=== PATIENT | male | born 1945 | race Caucasian/White ===

== ENCOUNTER 2018-04-20 08:07 | Day surgery (SDC) | payer MEDICARE, OTHER ==
[~2018-04-20 08:07] MED LIST: Lactated Ringers 1,000 ML IV SCH; Lidocaine 1%/Sod Bicarbonate in NS 8.4% 1 ML Syringe IDERM PRN; Sodium Chloride 0.9% 10 ML Syringe FLUSH PRN
[2018-04-20] MEDS ORDERED: Propofol 200 MG/20 ML SDV ONE (09:45)
[2018-04-20] MEDS ORDERED: fentaNYL 100 MCG/2 ML SDV ONE (09:46)
[2018-04-20] MEDS ORDERED: Lidocaine 1% 4 ML ONE (09:49)
--- NOTE | 2018-04-20 11:05 | PCM48HPAN ---
Post Anesthesia Note - EVALUATION WITHIN 48HRS OF ANESTHETIC Vital Signs in Normal Range: Yes Patient Participated in Evaluation: Yes Respiratory Function Stable: Yes Airway Patent: Yes Cardiovascular Function Stable: Yes Hydration Status Stable: Yes Pain Control Satisfactory: Yes Nausea and Vomiting Control Satisfactory: Yes Mental Status Recovered: Yes Pulse Rate: 50 SaO2: 96 Resp Rate: 16 Temperature: 36.9 C Blood Pressure: 124/65
--- NOTE | 2018-04-20 11:06 | PCM.OPNOTE ---
- General Post-Op/Procedure Note Date of Surgery/Procedure: 04/20/18 Operative Procedure(s): EGD with bx and esphageal dilitation to 45 F and colonosocopy to rt colon Pre Op Diagnosis: dysphagia and personal hx of colon cancer Post-Op Diagnosis: Same Anesthesia Technique: MAC Primary Surgeon: Carlo Marie EBL in mLs: 0 Complications: None Condition: Good
--- NOTE | 2018-04-20 11:14 | PCM.PREANE ---
Preanesthetic Assessment - Procedure Proposed Procedure: EGD/ Colonoscopy - Anesthesia/Transfusion/Family Hx Anesthesia History: Prior Anesthesia Without Reaction Family History of Anesthesia Reaction: No Transfusion History: No Prior Transfusion(s) Intubation History: Unknown - Review of Systems General: No Symptoms Pulmonary: No Symptoms Cardiovascular: Other (HTN, HLD) Gastrointestinal: Difficulty Swallowing, Other (Pt has hx of colon CA with chemotherapy ) Neurological: Numbness (LE neuropathy form chemo), Seizure (last 2013), Syncope (from a lodged food bolus ) Other: Reports: Thyroid Problems (hypothyroid) - Physical Assessment NPO Status Date: 04/19/18 NPO Status Time: 23:30 Pulse: 50 O2 Sat by Pulse Oximetry: 96 Respiratory Rate: 16 Blood Pressure: 124/65 Temperature: 36.9 C Vital Signs: Last Vital Signs Temp 36.9 C 04/20/18 11:05 Pulse 50 L 04/20/18 11:05 Resp 16 04/20/18 11:05 BP 124/65 04/20/18 11:05 Pulse Ox 96 04/20/18 11:05 Height: 1.78 m Weight: 81 kg ASA Class: 3 Mental Status: Alert & Oriented x3 Airway Class: Mallampati = 2 Dentition: Reports: Missing Tooth/Teeth (multiple missing molars ) Thyro-Mental Finger Breadths: 3 Mouth Opening Finger Breadths: 3 ROM/Head Extension: Full Lungs: Clear to Auscultation, Normal Respiratory Effort Cardiovascular: Regular Rate, Regular Rhythm - Allergies Allergies/Adverse Reactions: Allergies Allergy/AdvReac Type Severity Reaction Status Date / Time No Known Allergies Allergy Verified 04/19/18 13:04 - Blood Blood Available: No Product(s) Available: None - Anesthesia Plan Pre-Op Medication Ordered: None - Acknowledgements Anesthesia Type Planned: MAC Pt an Appropriate Candidate for the Planned Anesthesia: Yes Alternatives and Risks of Anesthesia Discussed w Pt/Guardian: Yes Pt/Guardian Understands and Agrees with Anesthesia Plan: Yes PreAnesthesia Questionnaire HEENT History: Reports: Impaired Vision Cardiovascular History: Reports: High Cholesterol, Hypertension Respiratory History: Reports: None Gastrointestinal History: Reports: Colon Polyp Genitourinary History: Reports: None [employer] History: Reports: None Musculoskeletal History: Reports: None 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, Peripheral, Seizure Psychiatric History: Reports: None Endocrine/Metabolic History: Reports: Hypothyroidism Hematologic History: Reports: None Immunologic History: Reports: Immunosuppression Oncologic (Cancer) History: Reports: Colon Dermatologic History: Reports: None - Past Surgical History Head Surgeries/Procedures: Reports: None HEENT Surgical History: Reports: Adenoidectomy, Cataract Surgery, Tonsillectomy Cardiovascular Surgical History: Reports: None Respiratory Surgical History: Reports: None GI Surgical History: Reports: Colon, Colonoscopy Female Surgical History: Reports: None Male Surgical History: Reports: None Endocrine Surgical History: Reports: None Neurological Surgical History: Reports: None Musculoskeletal Surgical History: Reports: None Oncologic Surgical History: Reports: Other (See Below) Other Oncologic Surgeries/Procedures: colon cancer treated with chemotherapy and radiation Dermatological Surgical History: Reports: None - SUBSTANCE USE Smoking Status *Q: Former Smoker Recreational Drug Use History: No - HOME MEDS Home Medications: Home Meds Cholecalciferol (Vitamin D3) [Vitamin D3] 5,000 unit PO DAILY 04/19/18 [History] Folic Acid 0.4 mg PO DAILY 04/19/18 [History] Levothyroxine [Synthroid] 100 mcg PO DAILY 04/19/18 [History] Metoprolol Tartrate 25 mg PO BID 04/19/18 [History] Multivitamin [Daily Multiple Vitamin] 1 tab PO DAILY 04/19/18 [History] Olmesartan/Hydrochlorothiazide [Benicar HCT 40-25 MG] 1 tab PO DAILY 04/19/18 [ History] Simvastatin [Zocor] 20 mg PO DAILY 04/19/18 [History] carBAMazepine [Tegretol] 400 mg PO TID 04/19/18 [History] levETIRAcetam [Keppra] 500 mg PO BID 04/19/18 [History] - CURRENT (IN HOUSE) MEDS Current Meds: Current Medications Lactated Ringer's (Ringers, Lactated) 1,000 mls @ 125 mls/hr IV ASDIRECTED NESTOR Stop: 04/20/18 23:00 Last Admin: 04/20/18 08:45 Dose: 125 mls/hr Lidocaine/Sodium Bicarbonate (Buffered Lidocaine 1% In Ns 8.4%) 0.25 ml IDERM ONETIME PRN PRN Reason: Prior to IV Start Stop: 04/20/18 18:00 Last Admin: 04/20/18 08:44 Dose: 0.25 ml Sodium Chloride (Saline Flush) 10 ml FLUSH ASDIRECTED PRN PRN Reason: Keep Vein Open Stop: 04/20/18 18:00 Discontinued Medications Fentanyl (Sublimaze) Confirm Administered Dose 100 mcg .ROUTE .STK-MED ONE Stop: 04/20/18 09:47 Lidocaine HCl (Xylocaine-Mpf 1%) Confirm Administered Dose 4 mls @ as directed .ROUTE .STK-MED ONE Stop: 04/20/18 09:50 Propofol (Diprivan 20 Ml) Confirm Administered Dose 200 mg .ROUTE .STK-MED ONE Stop: 04/20/18 09:46
--- NOTE | 2018-04-20 15:12 | OR ---
DATE OF OPERATION: 04/20/2018 SURGEON: Carlo Marie MD PREOPERATIVE DIAGNOSIS: Dysphagia. POSTOPERATIVE DIAGNOSIS: Dysphagia. OPERATION PERFORMED: Esophagogastroduodenoscopy with biopsy with balloon dilatation of distal esophagus to 45-Upper Sorbian. FINDINGS: Some flat mucosa in the stomach suggesting chronic gastritis. Biopsies were taken. Some erythema in the duodenal bulb and this area was biopsied. The GE junction appeared normal as did the second portion of the duodenum, rest of the stomach, and the balance of the esophagus. It was located at 40 cm. ANESTHESIA: Done under IV sedation. DESCRIPTION OF PROCEDURE: The patient was taken to the endoscopy room, placed in a supine position, connected to monitoring equipment, and given IV sedation. Bite block was inserted and video Olympus gastroscope was placed in the posterior oropharynx. Under direct vision, it was threaded past the cricopharyngeus, down the esophagus, into the stomach. The stomach was insufflated and the scope passed through the pylorus to the second portion of the duodenum. It was then slowly withdrawn showing normal second portion of the duodenum. Duodenal bulb showed some redness. This area was biopsied. Pyloric channel was normal. Antrum, body, and cardia of the stomach suggested some chronic gastritis and the antrum was biopsied. J-maneuver showed intact fundus, and hiatus was unremarkable and intact. The scope was withdrawn to the GE junction, which was at 40 cm and did not show acute disease. A balloon was then inserted through the channels of the scope and the distal esophagus dilated up to 45-Upper Sorbian. The scope was then slowly withdrawn showing no specific pathology. The patient tolerated the procedure, and IV sedation was continued for colonoscopy. ESTIMATED BLOOD LOSS: MMODAL /[id number]
--- NOTE | 2018-04-20 15:17 | OR ---
DATE OF OPERATION: 04/20/2018 SURGEON: Carlo Marie MD PREOPERATIVE DIAGNOSIS: History of colon cancer. POSTOPERATIVE DIAGNOSIS: History of colon cancer. OPERATION PERFORMED: Colonoscopy to the right colon where the right side-to- side ileocolonic anastomosis was noted. FINDINGS: Normal study. ANESTHESIA: Done under IV sedation. DESCRIPTION OF PROCEDURE: The patient was taken to the endoscopy room and having been given IV sedation for upper GI endoscopy, the IV sedation was continued for colonoscopy. He was placed in left lateral position. Perianal area was inspected and normal. Rectal exam showed good sphincter tone. A video Olympus colonoscope was then introduced into the rectum and threaded up to the right side of the colon, where a right hemicolectomy had been done for cancer with a [id number] staple anastomosis. This was functioning well and healed without problem. The scope was then slowly withdrawn showing normal remaining portion of the transverse colon, descending colon, sigmoid colon, and rectum. There was no evidence of recurrent cancer or other pathology in the colon. The patient tolerated the procedure, sent to recovery room in a stable condition, will be followed up in the clinic as needed. ESTIMATED BLOOD LOSS: MMODAL /[id number]
== END 2018-04-20 11:57 | disposition home or self-care (01) ==
LOC: JD.SDS 08:07
PROVIDERS: ATTEND Surgery
DX: Z12.11 Encounter for screening for malignant neoplasm of colon (principal); R13.10 Dysphagia, unspecified; K29.50 Unspecified chronic gastritis without bleeding; B96.81 Helicobacter pylori [H. pylori] as the cause of diseases classified elsewhere; K29.80 Duodenitis without bleeding; I10 Essential (primary) hypertension; E03.9 Hypothyroidism, unspecified; E78.2 Mixed hyperlipidemia; Z86.010 Personal history of colon polyps; Z85.038 Personal history of other malignant neoplasm of large intestine; Z87.891 Personal history of nicotine dependence; Z92.3 Personal history of irradiation; Z92.21 Personal history of antineoplastic chemotherapy; Z79.899 Other long term (current) drug therapy; Z79.890 Hormone replacement therapy; Z90.49 Acquired absence of other specified parts of digestive tract; Z98.0 Intestinal bypass and anastomosis status
CPT/HCPCS: 43239; 43249; 45378; J2001; J2704; J3010; J7120; 00813

== ENCOUNTER 2020-09-07 09:21 | Emergency (ER) | payer MEDICARE, OTHER ==
--- NOTE | 2020-09-07 09:34 | EDM.PDOC ---
ED HPI GENERAL MEDICAL PROBLEM - General Chief Complaint: Lower Extremity Injury/Pain Stated Complaint: HIGH BLOOD PRESSURE/ CANT WALK Time Seen by Provider: 09/07/20 09:28 - History of Present Illness INITIAL COMMENTS - FREE TEXT/NARRATIVE: 75-year-old male presents the emergency room with elevated blood pressure and increased difficulty walking. The patient and his seem to correlate this worsening lower extremity weakn ess with starting and the dosage increase of amlodipine his amlodipine was increased to 10 mg a day from 5 and this seemed to really make it worse but dating back to the onset of the amlodipine is when they think the weakness started. The patient was having some low back pain was seen by the chiropractor and low back pain is better but the patient is still having some lower extremity weakness. 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 Patient returned from [place] yesterday where he was visiting with family and apparently it took quite a bit of assistance for him to ambulate. The patient is not having problems being short of breath with ambulation just his legs are weak. The patient is not aware of any advanced imaging done to his low back. The patient has not had any loss of bowel or bladder control. Right Leg Pain Score (Numeric/FACES): 5 - Related Data Allergies Allergy/AdvReac Type Severity Reaction Status Date / Time No Known Allergies Allergy Verified 09/07/20 09:30 Home Meds: Home Meds Folic Acid 0.4 mg PO DAILY 04/19/18 [History] Levothyroxine [Synthroid] 100 mcg PO DAILY 04/19/18 [History] Multivitamin [Daily Multiple Vitamin] 1 tab PO DAILY 04/19/18 [History] Olmesartan/Hydrochlorothiazide [Benicar HCT 40-25 MG] 1 tab PO DAILY 04/19/18 [History] Simvastatin [Zocor] 20 mg PO DAILY 04/19/18 [History] carBAMazepine [Tegretol] 400 mg PO TID 04/19/18 [History] levETIRAcetam [Keppra] 500 mg PO BID 04/19/18 [History] amLODIPine [Norvasc] 5 mg PO DAILY 09/07/20 [History] Past Medical History HEENT History: Reports: Impaired Vision Cardiovascular History: Reports: High Cholesterol, Hypertension Respiratory History: Reports: None Gastrointestinal History: Reports: Colon Polyp Genitourinary History: Reports: None HEATING MECHANIC History: Reports: None Musculoskeletal History: Reports: None 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, Peripheral, Seizure Psychiatric History: Reports: None Endocrine/Metabolic History: Reports: Hypothyroidism Hematologic History: Reports: None Immunologic History: Reports: Immunosuppression Oncologic (Cancer) History: Reports: Colon Dermatologic History: Reports: None - Past Surgical History Head Surgeries/Procedures: Reports: None HEENT Surgical History: Reports: Adenoidectomy, Cataract Surgery, Tonsillectomy Cardiovascular Surgical History: Reports: None Respiratory Surgical History: Reports: None GI Surgical History: Reports: Colon, Colonoscopy Female Surgical History: Reports: None Male Surgical History: Reports: None Endocrine Surgical History: Reports: None Neurological Surgical History: Reports: None Musculoskeletal Surgical History: Reports: None Oncologic Surgical History: Reports: Other (See Below) Other Oncologic Surgeries/Procedures: colon cancer treated with chemotherapy and radiation Dermatological Surgical History: Reports: None Social & Family History - Caffeine Use Caffeine Use: Reports: Coffee Review of Systems - Review of Systems Review Of Systems: See Below Constitutional: Reports: No Symptoms Respiratory: Reports: No Symptoms Cardiovascular: Reports: No Symptoms GI/Abdominal: Reports: No Symptoms Musculoskeletal: Reports: Other (Lower extremity weakness). Denies: Back Pain Skin: Reports: No Symptoms Neurological: Reports: Difficulty Walking, Weakness (Limited to the lower extremities) ED EXAM, GENERAL - Physical Exam Exam: See Below Exam Limited By: No Limitations General Appearance: Alert, No Apparent Distress Head: Atraumatic, Normocephalic Neck: Normal Inspection, Supple, Non-Tender, Full Range of Motion Respiratory/Chest: No Respiratory Distress, Lungs Clear, Normal Breath Sounds Cardiovascular: Regular Rate, Rhythm, No Edema, No Murmur GI/Abdominal: Normal Bowel Sounds, Soft, Non-Tender Back Exam: Normal Inspection. No: CVA Tenderness (R), Decreased Range of Motion Extremities: Other (Straight leg raises especially in the right side show significant spasm in the posterior musculature down the thigh and into the lower leg no radicular symptoms this is noted on the look to a lesser degree on the left) Neurological: Alert, Oriented, Normal Cognition Course - Vital Signs Last Recorded V/S: Last Vital Signs Temp 36.7 C 09/07/20 09:28 Pulse 63 09/07/20 09:28 Resp 18 09/07/20 09:28 BP 156/67 H 09/07/20 09:28 Pulse Ox 98 09/07/20 09:28 - Orders/Labs/Meds Labs: Laboratory Tests 09/07/20 09/07/20 Range/Units 10:15 10:15 WBC 4.79 (4.23-9.07) K/mm3 RBC 4.14 L (4.63-6.08) M/mm3 Hgb 13.2 L (13.7-17.5) gm/dl Hct 38.0 L (40.1-51.0) % MCV 91.8 (79.0-92.2) fl MCH 31.9 (25.7-32.2) pg MCHC 34.7 (32.2-35.5) g/dl RDW Std Deviation 38.6 (35.1-43.9) fL Plt Count 221 (163-337) K/mm3 MPV 10.0 (9.4-12.3) fl Neut % (Auto) 60.7 (34.0-67.9) % Lymph % (Auto) 28.0 (21.8-53.1) % [place] % (Auto) 9.4 (5.3-12.2) % Eos % (Auto) 1.7 (0.8-7.0) Baso % (Auto) 0.2 (0.1-1.2) % Neut # (Auto) 2.91 (1.78-5.38) K/mm3 Lymph # (Auto) 1.34 (1.32-3.57) K/mm3 [place] # (Auto) 0.45 (0.30-0.82) K/mm3 Eos # (Auto) 0.08 (0.04-0.54) K/mm3 Baso # (Auto) 0.01 (0.01-0.08) K/mm3 Sodium 144 (136-145) mEq/L Potassium 4.2 (3.5-5.1) mEq/L Chloride 107 (98-107) mEq/L Carbon Dioxide 26 (21-32) mEq/L Anion Gap 15.2 H (5-15) BUN 31 H (7-18) mg/dL Creatinine 1.3 (0.7-1.3) mg/dL Est Cr Clr Drug Dosing 49.10 mL/min Estimated GFR (MDRD) 54 (>60) mL/min BUN/Creatinine Ratio 23.8 H (14-18) Glucose 143 H (70-99) mg/dL Calcium 8.8 (8.5-10.1) mg/dL Total Bilirubin 0.4 (0.2-1.0) mg/dL AST 26 (15-37) U/L ALT 46 (16-63) U/L Alkaline Phosphatase 86 (46-116) U/L Creatine Kinase 129 (39-308) U/L C-Reactive Protein 0.7 (<1.0) mg/dL Total Protein 7.2 (6.4-8.2) g/dl Albumin 3.8 (3.4-5.0) g/dl Globulin 3.4 gm/dL Albumin/Globulin Ratio 1.1 (1-2) - Re-Assessments/Exams Free Text/Narrative Re-Assessment/Exam: 09/07/20 11:50 Work essentially unremarkable he is mildly prerenal this could be from the diuretic. I am concerned about this gentleman's blood pressure on the other hand I think his symptoms may be due to things other than the amlodipine it is possible that the amlodipine could be causing this and it is not unreasonable to back his dose down and see how he does however I am concerned about the possibility of spinal stenosis I do not have MRI available over the weekend but I discussed this is a plausible explanation to the patient and his as to the cause of his symptoms. They need to discuss this with Dr. Olivera this next week. Muscle weakness has been described from amlodipine but it is is exceedingly rare. His complaint is mostly weakness not necessarily muscle pain so I do not believe it is a myalgia that is more common than the weakness. At this point we will decrease his amlodipine from 10 mg a day to 5 mg a day with close follow-up in the clinic. Departure - Departure Time of Disposition: 11:54 Disposition: Home, Self-Care 01 Clinical Impression: Leg weakness, bilateral, Hypertension - Discharge Information Referrals: Terence Olivera MD [Primary Care Provider] - Forms: ED Department Discharge Additional Instructions: Return to the emergency room with any questions problems worsening symptoms. Follow-up with Dr. Olivera this next week for recheck preferably Tuesday. Discussed with him the possibility of spinal stenosis causing the symptoms Decrease the amlodipine from 10 mg a day to 5 mg a day, one half of a 10 mg tablet Sepsis Event Note (ED) - Focused Exam Vital Signs: Vital Signs Temp Pulse Resp BP Pulse Ox 09/07/20 09:28 36.7 C 63 18 156/67 H 98
== END 2020-09-07 12:07 | disposition home or self-care (01) ==
LOC: JD.ED 09:21
DX: R53.1 Weakness (principal); I10 Essential (primary) hypertension; E78.00 Pure hypercholesterolemia, unspecified; E03.9 Hypothyroidism, unspecified; Z79.899 Other long term (current) drug therapy
CPT/HCPCS: 36415; 80053; 82550; 85025; 86140; 99283; 99284

== ENCOUNTER → 2022-09-02 | Day surgery (SDC) | payer MEDICARE, OTHER ==
[~2022-09-02] MED LIST changes: +Brimonidine 0.2% Ophth Soln 5 ML Bottle EYELF SCH; -Lactated Ringers 1,000 ML IV SCH; -Lidocaine 1%/Sod Bicarbonate in NS 8.4% 1 ML Syringe IDERM PRN; -Sodium Chloride 0.9% 10 ML Syringe FLUSH PRN
[2022-09-02] MEDS: Phenylephrine 2.5% Opth Drops 10 mL EYELF SCH ×3 (15:05→15:25)
[2022-09-02] MEDS: Tropicamide 1% Ophth Soln 15 ML Bottle EYELF SCH ×3 (15:10→15:30)
== END ==
LOC: JD.SDS 15:00
PROVIDERS: ATTEND Ophthalmology
DX: H26.492 Other secondary cataract, left eye (principal); E78.00 Pure hypercholesterolemia, unspecified; G40.909 Epilepsy, unspecified, not intractable, without status epilepticus; I10 Essential (primary) hypertension; E03.9 Hypothyroidism, unspecified; Z98.42 Cataract extraction status, left eye; Z96.1 Presence of intraocular lens; Z83.52 Family history of ear disorders; Z87.891 Personal history of nicotine dependence
CPT/HCPCS: 66821; A9270; J3490

== ENCOUNTER 2024-07-02 17:21 | Inpatient (IN) | payer MEDICARE, OTHER ==
[2024-07-02] MEDS ORDERED: Sodium Chloride 0.9% 10 ML Syringe FLUSH PRN (17:32)
[2024-07-02 17:57] LABS: BASOPHILS PERCENT AUTO 0.5 % (0.0-1.0); EOSINOPHILS ABSOLUTE AUTO 0.2 K/mm3 (0.0-0.4); EOSINOPHILS PERCENT AUTO 3.3 % (0.0-6.0); HEMATOCRIT 32.9 % (42.0-52.0); HEMOGLOBIN 11.6 gm/dl (14.0-18.0); IMMATURE GRAN ABSOLUTE AUTO 0.01 K/mm3 (0.00-0.05); IMMATURE GRAN PERCENT AUTO 0.2 % (0.0-0.4); LYMPHOCYTES ABSOLUTE AUTO 1.6 K/mm3 (1.0-4.8); LYMPHOCYTES PERCENT AUTO 29.8 % (24.0-44.0); MEAN CORPUSCULAR HEMOGLOBIN 32.6 pg (28.0-32.0); MEAN CORPUSCULAR HGB CONC 35.3 g/dl (32.0-36.0); MEAN CORPUSCULAR VOLUME 92.4 fl (83.0-99.0); MEAN PLATELET VOLUME 9.7 fl (9.4-12.4); MONOCYTES ABSOLUTE AUTO 0.5 K/mm3 (0.0-0.8); MONOCYTES PERCENT AUTO 9.5 % (0.0-8.0); NEUTROPHILS ABSOLUTE AUTO 3.1 K/mm3 (1.8-7.7); NEUTROPHILS PERCENT AUTO 56.7 % (41.0-71.0); PLATELET COUNT,PLT 280 K/mm3 (150-400); RED BLOOD CELL COUNT 3.56 M/mm3 (4.52-5.90); WHITE BLOOD CELL COUNT,WBC 5.47 K/mm3 (3.9-11.3)
[2024-07-02 18:24] LABS: INR 0.94
[2024-07-02 18:25] LABS: PTT,PARTIAL THROMBOPLSTIN TIME 24.2 SECONDS (21.7-31.4)
[2024-07-02 18:26] LABS: A/G RATIO 1.1 (1-2); ALBUMIN 3.7 g/dl (3.4-5.0); ANION GAP 11.1 (5-15); BILIRUBIN TOTAL 0.4 mg/dL (0.2-1.0); BUN/CREATININE RATIO 24.2 (14-18); CALCIUM 9.1 mg/dL (8.5-10.1); CREATININE 1.2 mg/dL (0.7-1.3); EST CRCL DRUG DOSING (CG) 51.24 mL/min; POTASSIUM,K 4.1 mEq/L (3.5-5.1); PROTEIN TOTAL,TP 7.2 g/dl (6.4-8.2)
[2024-07-02] MEDS ORDERED: Ondansetron 4 MG Tab.DIS PO PRN (19:31)
[2024-07-02] MEDS: Acetaminophen 325 MG Tab PO PRN (19:53)
[2024-07-02 23:09] LABS: APPEARANCE,URINE CLEAR (Clear); BILIRUBIN,URINE NEGATIVE (Negative); COLOR,URINE YELLOW (Yellow); GLUCOSE,URINE NEGATIVE (Negative); KETONES,URINE TRACE (Negative); LEUKOCYTE ESTERASE,URINE NEGATIVE (Negative); NITRITE,URINE NEGATIVE (Negative); OCCULT BLOOD,URINE NEGATIVE (Negative); PROTEIN,URINE NEGATIVE (Negative); UROBILINOGEN,URINE 0.2 (0.2-1.0)
[2024-07-03] MEDS: levETIRAcetam 500 MG Tab PO SCH (08:46)
[2024-07-03] MEDS: Folic Acid 1 MG Tab PO SCH (08:46)
[2024-07-03] MEDS: Levothyroxine 100 MCG Tab PO SCH (08:46)
[2024-07-03] MEDS: atorvaSTATin 20 MG Tab PO SCH (08:47)
[2024-07-03] MEDS: carBAMazepine 200 MG Tab PO SCH (08:49)
[2024-07-03] MEDS: Carbidopa/Levodopa 25-100 MG Tab PO SCH (11:00)
[2024-07-03] MEDS: Gabapentin 300 MG Cap PO SCH (11:00)
[2024-07-03] MEDS: Gabapentin 100 MG Cap PO SCH (20:09)
[2024-07-03] MEDS: Tamsulosin 0.4 MG Cap.ER PO SCH (20:09)
[2024-07-03] MEDS: Carbidopa/Levodopa 25-100 MG Tab.ER PO SCH (20:11)
[2024-07-03] MEDS: Sodium Chloride 0.9% 1,000 ML IV SCH (23:46)
[2024-07-04 04:44] LABS: BASOPHILS PERCENT AUTO 0.6 % (0.0-1.0); EOSINOPHILS ABSOLUTE AUTO 0.3 K/mm3 (0.0-0.4); EOSINOPHILS PERCENT AUTO 3.7 % (0.0-6.0); HEMATOCRIT 31.6 % (42.0-52.0); HEMOGLOBIN 11.3 gm/dl (14.0-18.0); IMMATURE GRAN ABSOLUTE AUTO 0.01 K/mm3 (0.00-0.05); IMMATURE GRAN PERCENT AUTO 0.1 % (0.0-0.4); LYMPHOCYTES ABSOLUTE AUTO 2.4 K/mm3 (1.0-4.8); LYMPHOCYTES PERCENT AUTO 35.1 % (24.0-44.0); MEAN CORPUSCULAR HEMOGLOBIN 32.4 pg (28.0-32.0); MEAN CORPUSCULAR HGB CONC 35.8 g/dl (32.0-36.0); MEAN CORPUSCULAR VOLUME 90.5 fl (83.0-99.0); MEAN PLATELET VOLUME 9.6 fl (9.4-12.4); MONOCYTES ABSOLUTE AUTO 0.6 K/mm3 (0.0-0.8); MONOCYTES PERCENT AUTO 8.6 % (0.0-8.0); NEUTROPHILS ABSOLUTE AUTO 3.5 K/mm3 (1.8-7.7); NEUTROPHILS PERCENT AUTO 51.9 % (41.0-71.0); PLATELET COUNT,PLT 260 K/mm3 (150-400); RED BLOOD CELL COUNT 3.49 M/mm3 (4.52-5.90); WHITE BLOOD CELL COUNT,WBC 6.73 K/mm3 (3.9-11.3)
[2024-07-04 04:55] LABS: A/G RATIO 1.1 (1-2); ALBUMIN 3.3 g/dl (3.4-5.0); ANION GAP 10.4 (5-15); BILIRUBIN TOTAL 0.4 mg/dL (0.2-1.0); CALCIUM 8.7 mg/dL (8.5-10.1); CREATININE 1.2 mg/dL (0.7-1.3); EST CRCL DRUG DOSING (CG) 48.04 mL/min; POTASSIUM,K 4.4 mEq/L (3.5-5.1); PROTEIN TOTAL,TP 6.4 g/dl (6.4-8.2); TSH 0.917 uIU/mL (0.358-3.74)
[2024-07-04] MEDS: Enoxaparin 40 MG/0.4 ML Syringe SUBCUT SCH (08:56)
[2024-07-04] MEDS: Cyanocobalamin (Vitamin B12) 1,000 MCG Tab PO SCH (08:57)
[2024-07-04] MEDS: Sodium Chloride 0.9% 10 ML Syringe FLUSH SCH (12:19)
[2024-07-04] MEDS: Gadobenate Dimeglumine 529 MG/ML 15 ML SDV IVPUSH ONE (12:19)
[2024-07-05] MEDS: Losartan 100 MG Tab PO SCH (09:13)
[2024-07-05] MEDS: Hydrochlorothiazide 25 MG Tab PO SCH (09:15)
[2024-07-05 09:38] LABS: BASOPHILS PERCENT AUTO 0.4 % (0.0-1.0); EOSINOPHILS ABSOLUTE AUTO 0.2 K/mm3 (0.0-0.4); EOSINOPHILS PERCENT AUTO 3.1 % (0.0-6.0); HEMATOCRIT 33.5 % (42.0-52.0); HEMOGLOBIN 11.7 gm/dl (14.0-18.0); IMMATURE GRAN ABSOLUTE AUTO 0.02 K/mm3 (0.00-0.05); IMMATURE GRAN PERCENT AUTO 0.3 % (0.0-0.4); LYMPHOCYTES ABSOLUTE AUTO 1.4 K/mm3 (1.0-4.8); MEAN CORPUSCULAR HEMOGLOBIN 32.3 pg (28.0-32.0); MEAN CORPUSCULAR HGB CONC 34.9 g/dl (32.0-36.0); MEAN CORPUSCULAR VOLUME 92.5 fl (83.0-99.0); MEAN PLATELET VOLUME 8.8 fl (9.4-12.4); MONOCYTES ABSOLUTE AUTO 0.5 K/mm3 (0.0-0.8); MONOCYTES PERCENT AUTO 6.7 % (0.0-8.0); NEUTROPHILS ABSOLUTE AUTO 5.3 K/mm3 (1.8-7.7); NEUTROPHILS PERCENT AUTO 70.5 % (41.0-71.0); PLATELET COUNT,PLT 260 K/mm3 (150-400); RED BLOOD CELL COUNT 3.62 M/mm3 (4.52-5.90); WHITE BLOOD CELL COUNT,WBC 7.49 K/mm3 (3.9-11.3)
[2024-07-05 09:45] LABS: BASE EXCESS ARTERIAL 3.2 (-2-2.0); BICARBONATE,ARTERIAL 27.9 meq/L (22.0-26.0); O2 SATURATION ARTERIAL 99.7 % (96.0-97.0)
[2024-07-05 10:05] LABS: ALBUMIN 3.6 g/dl (3.4-5.0); ANION GAP 9.7 (5-15); BILIRUBIN TOTAL 0.3 mg/dL (0.2-1.0); BUN/CREATININE RATIO 27.5 (14-18); CALCIUM 8.9 mg/dL (8.5-10.1); CREATININE 1.2 mg/dL (0.7-1.3); EST CRCL DRUG DOSING (CG) 47.75 mL/min; POTASSIUM,K 3.7 mEq/L (3.5-5.1); PROTEIN TOTAL,TP 7.1 g/dl (6.4-8.2)
[2024-07-05 10:11] LABS: LACTIC ACID 1.1 mmol/L (0.4-2.0)
[2024-07-05] MEDS: Carbidopa/Levodopa 25-100 MG Tab PO SCH (17:15)
[2024-07-06 17:01] LABS: APPEARANCE,URINE CLEAR (Clear); BILIRUBIN,URINE NEGATIVE (Negative); COLOR,URINE YELLOW (Yellow); GLUCOSE,URINE NEGATIVE (Negative); KETONES,URINE NEGATIVE (Negative); LEUKOCYTE ESTERASE,URINE NEGATIVE (Negative); NITRITE,URINE NEGATIVE (Negative); OCCULT BLOOD,URINE NEGATIVE (Negative); PROTEIN,URINE NEGATIVE (Negative); UROBILINOGEN,URINE 0.2 (0.2-1.0)
[2024-07-06 17:18] LABS: BACTERIA,URINE FEW /hpf (FEW); MUCUS,URINE FEW /hpf (FEW); RBC,URINE 0-5 /hpf (0-5); SQUAMOUS EPITHELIAL CELLS,UR 0-5 /hpf (0-5); WBC,URINE 0-5 /hpf (0-5)
[2024-07-07 04:46] LABS: KEPPRA 26 ug/mL (10-40)
[2024-07-07] MEDS: Polyethylene Glycol 3350 Powder 17 GM Packet PO PRN (08:11)
[2024-07-07] MEDS: Carboxymethylcellulose Sodium 1% Ophth Gel 15 ML Bottle EYEBOTH PRN (10:25)
[2024-07-07] MEDS: Docusate Sodium 100 MG Cap PO PRN (20:46)
[2024-07-08] MEDS: Ondansetron 4 MG/2 ML SDV IV PRN (20:49)
== END 2024-07-09 13:45 | DRG 57 ==
LOC: JD.ED 17:21 → JD.MS 19:30
PROVIDERS: ADMIT Family Medicine; ATTEND Student in an Organized Health Care Education/Training Program
DX: G20.B2 Parkinson's disease with dyskinesia, with fluctuations (principal); D84.9 Immunodeficiency, unspecified; E87.1 Hypo-osmolality and hyponatremia; G93.40 Encephalopathy, unspecified; I10 Essential (primary) hypertension; Z79.890 Hormone replacement therapy; E11.42 Type 2 diabetes mellitus with diabetic polyneuropathy; W18.39XA Other fall on same level, initial encounter; Y93.89 Activity, other specified; E03.9 Hypothyroidism, unspecified; G40.909 Epilepsy, unspecified, not intractable, without status epilepticus; E78.00 Pure hypercholesterolemia, unspecified; H54.7 Unspecified visual loss; F15.90 Other stimulant use, unspecified, uncomplicated; R26.2 Difficulty in walking, not elsewhere classified; E87.8 Other disorders of electrolyte and fluid balance, not elsewhere classified; W18.30XA Fall on same level, unspecified, initial encounter; S00.83XA Contusion of other part of head, initial encounter; Z85.038 Personal history of other malignant neoplasm of large intestine; Z79.899 Other long term (current) drug therapy; Z90.89 Acquired absence of other organs; Z98.49 Cataract extraction status, unspecified eye
CPT/HCPCS: 36415; 36600; 70450; 70450-26; 70553; 70553-26; 80053; 80156; 80177; 81001; 81003; 82550; 82803; 82947; 83605; 83735; 84443; 84484; 85025; 85610; 85730; 87428-QW; 93005; 93010; 97110-GP; 97112-GP; 97116-GP; 97162-GP; 97530-GP; 99223; 99232; 99233; 99239; 99285; A9270-GY; A9577; J1650; J2405; J7030

== ENCOUNTER 2024-08-20 09:39 | Inpatient (IN) | payer MEDICARE, OTHER ==
[2024-08-20 11:19] LABS: BASOPHILS PERCENT AUTO 0.1 % (0.0-1.0); EOSINOPHILS ABSOLUTE AUTO 0.1 K/mm3 (0.0-0.4); EOSINOPHILS PERCENT AUTO 0.8 % (0.0-6.0); HEMATOCRIT 28.6 % (42.0-52.0); IMMATURE GRAN ABSOLUTE AUTO 0.02 K/mm3 (0.00-0.05); IMMATURE GRAN PERCENT AUTO 0.3 % (0.0-0.4); LYMPHOCYTES ABSOLUTE AUTO 1.4 K/mm3 (1.0-4.8); LYMPHOCYTES PERCENT AUTO 17.9 % (24.0-44.0); MEAN CORPUSCULAR HEMOGLOBIN 32.8 pg (28.0-32.0); MEAN CORPUSCULAR VOLUME 93.8 fl (83.0-99.0); MEAN PLATELET VOLUME 9.7 fl (9.4-12.4); MONOCYTES ABSOLUTE AUTO 0.9 K/mm3 (0.0-0.8); MONOCYTES PERCENT AUTO 11.7 % (0.0-8.0); NEUTROPHILS ABSOLUTE AUTO 5.3 K/mm3 (1.8-7.7); NEUTROPHILS PERCENT AUTO 69.2 % (41.0-71.0); PLATELET COUNT,PLT 207 K/mm3 (150-400); RED BLOOD CELL COUNT 3.05 M/mm3 (4.52-5.90); WHITE BLOOD CELL COUNT,WBC 7.59 K/mm3 (3.9-11.3)
[2024-08-20 11:45] LABS: A/G RATIO 0.9 (1-2); ALBUMIN 3.1 g/dl (3.4-5.0); ANION GAP 12.4 (5-15); BILIRUBIN TOTAL 0.5 mg/dL (0.2-1.0); BUN/CREATININE RATIO 19.1 (14-18); CALCIUM 8.6 mg/dL (8.5-10.1); CREATININE 1.1 mg/dL (0.7-1.3); EST CRCL DRUG DOSING (CG) 52.05 mL/min; MAGNESIUM 1.9 mg/dL (1.8-2.4); POTASSIUM,K 4.4 mEq/L (3.5-5.1); PROTEIN TOTAL,TP 6.4 g/dl (6.4-8.2)
[2024-08-20 12:45] LABS: APPEARANCE,URINE CLEAR (Clear); BILIRUBIN,URINE NEGATIVE (Negative); COLOR,URINE YELLOW (Yellow); GLUCOSE,URINE NEGATIVE (Negative); KETONES,URINE NEGATIVE (Negative); LEUKOCYTE ESTERASE,URINE NEGATIVE (Negative); NITRITE,URINE NEGATIVE (Negative); OCCULT BLOOD,URINE TRACE-INTACT (Negative); PH,URINE 6.5 (5.0-8.0); PROTEIN,URINE NEGATIVE (Negative); UROBILINOGEN,URINE 0.2 (0.2-1.0)
[2024-08-20 12:55] LABS: EPITHELIAL CELLS,URINE 0-5 /hpf (0-5); RBC,URINE 0-5 /hpf (0-5); WBC,URINE 0-5 /hpf (0-5)
[2024-08-20 12:56] LABS: BACTERIA,URINE RARE /hpf (FEW); MUCUS,URINE RARE /hpf (FEW)
[2024-08-20] MEDS: Sodium Chloride 0.9% 500 ML IV ONE (13:27)
[2024-08-20] MEDS ORDERED: Melatonin 3 MG Tab PO PRN (17:30)
[2024-08-20] MEDS ORDERED: Acetaminophen 325 MG Tab PO PRN (17:30)
[2024-08-20] MEDS ORDERED: Ondansetron 4 MG Tab.DIS PO PRN (17:30)
[2024-08-20] MEDS ORDERED: oxyCODONE 5 MG Tab PO PRN (17:30)
[2024-08-20] MEDS ORDERED: Tamsulosin 0.4 MG Cap.ER PO SCH (21:00)
[2024-08-20] MEDS: levETIRAcetam 500 MG Tab PO SCH (21:06)
[2024-08-20] MEDS: Gabapentin 100 MG Cap PO SCH (21:06)
[2024-08-20] MEDS: carBAMazepine 200 MG Tab PO SCH (21:06)
[2024-08-20] MEDS: Carbidopa/Levodopa 25-100 MG Tab PO SCH (21:08)
[2024-08-20] MEDS: Diclofenac Sodium 1% Gel 100 GM Tube TOP SCH (21:09)
[2024-08-21 04:10] LABS: BASOPHILS PERCENT AUTO 0.3 % (0.0-1.0); EOSINOPHILS ABSOLUTE AUTO 0.1 K/mm3 (0.0-0.4); EOSINOPHILS PERCENT AUTO 1.4 % (0.0-6.0); HEMOGLOBIN 10.3 gm/dl (14.0-18.0); IMMATURE GRAN ABSOLUTE AUTO 0.02 K/mm3 (0.00-0.05); IMMATURE GRAN PERCENT AUTO 0.3 % (0.0-0.4); LYMPHOCYTES ABSOLUTE AUTO 1.6 K/mm3 (1.0-4.8); LYMPHOCYTES PERCENT AUTO 21.5 % (24.0-44.0); MEAN CORPUSCULAR HEMOGLOBIN 33.3 pg (28.0-32.0); MEAN CORPUSCULAR HGB CONC 35.5 g/dl (32.0-36.0); MEAN CORPUSCULAR VOLUME 93.9 fl (83.0-99.0); MEAN PLATELET VOLUME 9.7 fl (9.4-12.4); MONOCYTES ABSOLUTE AUTO 0.7 K/mm3 (0.0-0.8); MONOCYTES PERCENT AUTO 9.8 % (0.0-8.0); NEUTROPHILS ABSOLUTE AUTO 4.9 K/mm3 (1.8-7.7); NEUTROPHILS PERCENT AUTO 66.7 % (41.0-71.0); PLATELET COUNT,PLT 214 K/mm3 (150-400); RED BLOOD CELL COUNT 3.09 M/mm3 (4.52-5.90); WHITE BLOOD CELL COUNT,WBC 7.27 K/mm3 (3.9-11.3)
[2024-08-21 04:41] LABS: A/G RATIO 0.9 (1-2); ALBUMIN 3.1 g/dl (3.4-5.0); ANION GAP 12.3 (5-15); BILIRUBIN TOTAL 0.5 mg/dL (0.2-1.0); BUN/CREATININE RATIO 19.1 (14-18); C-REACTIVE PROTEIN 13.57 mg/dL (<0.30); CALCIUM 8.8 mg/dL (8.5-10.1); CREATININE 1.1 mg/dL (0.7-1.3); EST CRCL DRUG DOSING (CG) 52.84 mL/min; MAGNESIUM 1.8 mg/dL (1.8-2.4); PHOSPHORUS 3.6 mg/dL (2.6-4.7); POTASSIUM,K 4.3 mEq/L (3.5-5.1); PROTEIN TOTAL,TP 6.6 g/dl (6.4-8.2); TSH 0.65 uIU/mL (0.358-3.74)
[2024-08-21] MEDS: Levothyroxine 100 MCG Tab PO SCH (06:03)
[2024-08-21] MEDS: Gabapentin 300 MG Cap PO SCH (08:56)
[2024-08-21] MEDS: Folic Acid 1 MG Tab PO SCH (08:56)
[2024-08-21] MEDS: Losartan 25 MG Tab PO SCH (08:56)
[2024-08-21] MEDS: Cyanocobalamin (Vitamin B12) 1,000 MCG Tab PO SCH (08:56)
[2024-08-21] MEDS: Multivitamin Tab PO SCH (08:56)
[2024-08-21] MEDS: Enoxaparin 40 MG/0.4 ML Syringe SUBCUT SCH (08:57)
[2024-08-21] MEDS ORDERED: ALPHA LIPOIC ACID 200 MG PO SCH (09:00)
[2024-08-21] MEDS ORDERED: hydrALAZINE 20 MG/ML SDV IVPUSH PRN (11:43)
[2024-08-21] MEDS ORDERED: Labetalol 100 MG/20 ML MDV IVPUSH PRN (11:43)
[2024-08-21] MEDS: Sennosides/Docusate Sodium 50-8.6 MG Tab PO PRN (14:22)
[2024-08-24 11:46] LABS: KEPPRA 23 ug/mL (10-40)
== END 2024-08-22 12:50 | DRG 558 ==
LOC: JD.ED 09:39 → JD.MS 13:07
PROVIDERS: ADMIT Student in an Organized Health Care Education/Training Program; ATTEND Student in an Organized Health Care Education/Training Program
DX: M70.22 Olecranon bursitis, left elbow (principal); R53.1 Weakness; H54.7 Unspecified visual loss; E78.00 Pure hypercholesterolemia, unspecified; I10 Essential (primary) hypertension; Z66 Do not resuscitate; R56.9 Unspecified convulsions; G20.A1 Parkinson's disease without dyskinesia, without mention of fluctuations; G62.9 Polyneuropathy, unspecified; E03.9 Hypothyroidism, unspecified; Z85.038 Personal history of other malignant neoplasm of large intestine; Z98.49 Cataract extraction status, unspecified eye; Z90.49 Acquired absence of other specified parts of digestive tract; Z98.890 Other specified postprocedural states; Z79.899 Other long term (current) drug therapy
CPT/HCPCS: 36415; 73080-26-LT; 73080-LT; 80053; 80156; 80177; 81001; 83735; 84100; 84443; 85025; 86140; 94760; 94761; 97110-GP; 97116-GP; 97161-GP; 97530-GP; 99284; 99285; A9270-GY; J1650; J7030